=== PATIENT | female | born 1940 | race Caucasian/White ===

== ENCOUNTER 2017-12-18 10:44 | Outpatient (CLI) | payer MEDICARE, OTHER | END 2017-12-18 10:45 | disposition home or self-care (01) | LOC: BICMAMMO 10:44 | PROVIDERS: ATTEND Internal Medicine Geriatric Medicine | DX: Z12.31 Encounter for screening mammogram for malignant neoplasm of breast (principal); Z13.820 Encounter for screening for osteoporosis; I10 Essential (primary) hypertension; M85.859 Other specified disorders of bone density and structure, unspecified thigh; N64.89 Other specified disorders of breast | CPT/HCPCS: 77063; 77067; 77080 ==

== ENCOUNTER 2018-01-06 08:52 | Outpatient (CLI) | payer MEDICARE, OTHER | END 2018-01-06 08:53 | disposition home or self-care (01) | LOC: BICMAMMO 08:52 | PROVIDERS: ATTEND Internal Medicine Geriatric Medicine | DX: R92.1 Mammographic calcification found on diagnostic imaging of breast (principal) | CPT/HCPCS: 77065; G0279 ==

== ENCOUNTER → 2018-01-17 | Day surgery (SDC) | payer MEDICARE, OTHER ==
--- NOTE | 2018-01-17 16:00 | MMO ---
STEREOTACTIC GUIDED BIOPSY LEFT BREAST MICROCALCIFICATIONS SURGICAL SPECIMEN MAMMOGRAPHY LEFT BREAST BIOPSY LEFT DIAGNOSTIC MAMMOGRAM POST BIOPSY 01/17/18 HISTORY: Abnormal mammogram. Microcalcifications left breast. FINDINGS: After explaining the procedure and answering all questions, the microcalcifications deep within the s uperolateral aspect of the left breast were visualized. Sterile technique, buffered local anesthesia, stereotactic guidance, and a superior approach were used to carefully advance a 10 gauge vacuum assi sted biopsy needle to the level of the microcalcifications. Position was confirmed with stereotactic imaging. A total of seven vacuum assisted specimens were obtained and eventually submitted to patholo gy for evaluation. Localization clip was placed in the biopsy bed and position confirmed with stereotactic imaging. Surgical specimen mammography shows microcalcifications in the specimens. Needle was removed. Patient tolerated the procedure well and eventually dismissed in good condition. Postprocedure mammography shows localization clip in the biopsy bed with most of the microcalcificati ons no longer visible. IMPRESSION: Technically successful stereotactic guided biopsy left breast microcalcifications. Pathology is pendi ng. POS: [facility]
== END ==
LOC: MAMMO 13:54
PROVIDERS: ATTEND Internal Medicine Geriatric Medicine
PROC: 0HBU3ZX Excision of Left Breast, Percutaneous Approach, Diagnostic (ICD-10-PCS; principal; 2018-01-17)
DX: Z12.31 Encounter for screening mammogram for malignant neoplasm of breast (principal); N60.92 Unspecified benign mammary dysplasia of left breast; I10 Essential (primary) hypertension; M81.0 Age-related osteoporosis without current pathological fracture
CPT/HCPCS: 19081; 76098; 88305

== ENCOUNTER 2018-08-25 10:31 | Outpatient (CLI) | payer MEDICARE, OTHER | END 2018-08-25 10:32 | disposition home or self-care (01) | LOC: BICMAMMO 10:31 | PROVIDERS: ATTEND Internal Medicine Geriatric Medicine | DX: R92.8 Other abnormal and inconclusive findings on diagnostic imaging of breast (principal) | CPT/HCPCS: 77065; G0279 ==

== ENCOUNTER 2019-08-27 07:49 | Outpatient (CLI) | payer MEDICARE, OTHER ==
--- NOTE | 2019-08-27 09:00 | MMO ---
Bilateral MAMMO Bilat Screen [facility]. CLINICAL HISTORY: Patient is 78 years old and is seen for screening. The patient has no family history of breast cancer. The patient has no personal history of cancer. The patient has a history of left Stereotatic Biopsy in 2018 - benign. VIEWS: The views performed were: bilateral craniocaudal with tomosynthesis and bilateral mediolateral oblique with tomosynthesis. FILMS COMPARED: The present examination has been compared to prior imaging studies performed at [facility] on 12/18/2017, 01/06/2018 and 08/25/2018, and at [facility] on 09/17/2016. This study has been interpreted with the assistance of computer-aided detection. MAMMOGRAM FINDINGS: There are scattered fibroglandular densities. Finding 1: There is a stable biopsy clip seen in the left breast. Finding 2: There are stable benign appearing densities seen in both breasts. There are no suspicious masses, suspicious calcifications, or new areas of architectural distortion. IMPRESSION: THERE IS NO MAMMOGRAPHIC EVIDENCE OF MALIGNANCY. A ROUTINE FOLLOW-UP MAMMOGRAM IN 1 YEAR IS RECOMMENDED. THE RESULTS OF THIS EXAM WERE SENT TO THE PATIENT. ACR BI-RADS Category 2 - Benign finding MAMMOGRAPHY NOTE: 1. A negative mammogram report should not delay a biopsy if a dominant of clinically suspicious mass is present. 2. Approximately 10% to 15% of breast cancers are not detected by mammography. 3. Adenosis and dense breasts may obscure an underlying neoplasm. Reported by: ESTEPHANIA FINCH MD Electonically Signed: [id number]
== END 2019-08-27 07:50 | disposition home or self-care (01) ==
LOC: BICMAMMO 07:49
PROVIDERS: ATTEND Family Medicine
DX: Z12.31 Encounter for screening mammogram for malignant neoplasm of breast (principal)
CPT/HCPCS: 77063; 77067

== ENCOUNTER 2021-04-25 12:01 | Outpatient (CLI) | payer MEDICARE, OTHER | END 2021-04-25 12:02 | disposition home or self-care (01) | LOC: BICMAMMO 12:01 | PROVIDERS: ATTEND Family Medicine | DX: Z12.31 Encounter for screening mammogram for malignant neoplasm of breast (principal); Z91.89 Other specified personal risk factors, not elsewhere classified | CPT/HCPCS: 77063; 77067 ==

== ENCOUNTER 2022-05-30 09:26 | Outpatient (CLI) | payer MEDICARE | END 2022-05-30 09:27 | disposition home or self-care (01) | LOC: MRI 09:26 | PROVIDERS: ATTEND Family Medicine | DX: R42 Dizziness and giddiness (principal) | CPT/HCPCS: 70551 ==

== ENCOUNTER 2023-12-18 11:43 | Outpatient (CLI) | payer MEDICARE | END 2023-12-18 11:44 | disposition home or self-care (01) | LOC: BICMAMMO 11:43 | PROVIDERS: ATTEND Family Medicine | DX: Z12.31 Encounter for screening mammogram for malignant neoplasm of breast (principal); Z91.89 Other specified personal risk factors, not elsewhere classified | CPT/HCPCS: 77063; 77067 ==

== ENCOUNTER 2025-02-04 11:02 | Outpatient (CLI) | payer MEDICARE | END 2025-02-04 11:03 | disposition home or self-care (01) | LOC: BICMAMMO 11:02 | PROVIDERS: ATTEND Family Medicine | DX: M85.851 Other specified disorders of bone density and structure, right thigh (principal); M81.0 Age-related osteoporosis without current pathological fracture | CPT/HCPCS: 77080 ==